=== PATIENT | female | born 1990 | race Two or more races ===

== ENCOUNTER 2018-11-15 07:00 | Outpatient (CLI) | payer OTHER | END 2018-11-15 10:00 | disposition home or self-care (01) | LOC: RAD 07:00 | DX: S63.52 Sprain of radiocarpal joint (principal); M46.1 Sacroiliitis, not elsewhere classified ==

== ENCOUNTER 2020-08-29 09:45 | Inpatient (IN) | payer OTHER ==
[~2020-08-29] VITALS: Ht 160 cm; Wt 2.7 kg
[2020-09-20] MEDS ORDERED: VALTREX1000 MG PO (13:16)
[2020-09-20] MEDS ORDERED: PRENATAL TABLE1 EAC1 PO (13:16)
[2020-09-20] MEDS ORDERED: IRON325 MG PO (13:16)
== END 2020-09-22 15:06 | disposition home or self-care (01) | DRG 788 ==
LOC: OB/GYN 09:45 → LDR 09-20 12:55 → SURG-SUITE 09-20 20:54 → OB/GYN 09-25 09:45
PROVIDERS: ADMIT Obstetrics & Gynecology; ATTEND Obstetrics & Gynecology
PROC: 10907ZC Drainage of Amniotic Fluid, Therapeutic from Products of Conception, Via Natural or Artificial Opening (ICD-10-PCS; 2020-09-20)
PROC: 4A1HXFZ Monitoring of Products of Conception, Cardiac Rhythm, External Approach (ICD-10-PCS; 2020-09-20)
PROC: 10D00Z1 Extraction of Products of Conception, Low, Open Approach (ICD-10-PCS; principal; 2020-09-20 17:00)
DX: O62.1 Secondary uterine inertia (principal); Z3A.37 37 weeks gestation of pregnancy; Z37.0 Single live birth; Z20.822 Contact with and (suspected) exposure to COVID-19

== ENCOUNTER 2020-09-19 07:38 | Outpatient (CLI) | payer OTHER ==
[2020-09-20] MEDS ORDERED: PRENATAL TABLE1 EAC1 PO (13:16)
[2020-09-20] MEDS ORDERED: VALTREX1000 MG PO (13:16)
[2020-09-20] MEDS ORDERED: IRON325 MG PO (13:16)
== END 2020-09-19 08:03 | disposition home or self-care (01) ==
LOC: NST 07:38
PROVIDERS: ATTEND Obstetrics & Gynecology Maternal & Fetal Medicine
DX: Z34.83 Encounter for supervision of other normal pregnancy, third trimester (principal)

== ENCOUNTER 2022-08-17 10:16 | Outpatient (CLI) | payer OTHER ==
[~2022-08-17 10:16] MED LIST: IRON325 MG PO; PRENATAL TABLE1 EAC1 PO; VALTREX1000 MG PO
== END 2022-08-17 12:24 | disposition home or self-care (01) ==
LOC: NST 10:16
PROVIDERS: ATTEND Obstetrics & Gynecology
DX: Z34.83 Encounter for supervision of other normal pregnancy, third trimester (principal)